=== PATIENT | female | born 1980 | race Caucasian/White ===

== ENCOUNTER → 2019-03-27 | Emergency (ER) | payer OTHER ==
[~2019-03-27] VITALS: Ht 157.5 cm; Wt 65.8 kg
== END | disposition left against medical advice (07) ==
LOC: ER 16:51 → EDBD 17:30
DX: Z53.20 Procedure and treatment not carried out because of patient's decision for unspecified reasons (principal)

== ENCOUNTER 2019-05-10 15:44 | Emergency (ER) | payer OTHER ==
[~2019-05-10] VITALS: Ht 157.5 cm; Wt 64.4 kg
[2019-05-10] MEDS ORDERED: NORVASC10 MG PO (16:00)
[2019-05-10] MEDS ORDERED: ALTACE10 MG PO (16:00)
[2019-05-10] MEDS ORDERED: CRYSELLE-28 TA1 EACH PO (16:11)
== END 2019-05-10 18:25 | disposition home or self-care (01) ==
LOC: ER 15:44
DX: S13.4XXA Sprain of ligaments of cervical spine, initial encounter (principal); M54.2 Cervicalgia; R07.89 Other chest pain; M62.838 Other muscle spasm; V49.88XA Car occupant (driver) (passenger) injured in other specified transport accidents, initial encounter; Y93.89 Activity, other specified; Y92.488 Other paved roadways as the place of occurrence of the external cause; Y99.8 Other external cause status

== ENCOUNTER 2019-05-31 20:49 | Emergency (ER) | payer OTHER ==
[~2019-05-31] VITALS: Ht 157.5 cm; Wt 68.0 kg
[~2019-05-31 20:49] MED LIST: ALTACE10 MG PO; CRYSELLE-28 TA1 EACH PO; NORVASC10 MG PO
== END 2019-05-31 22:23 | disposition home or self-care (01) ==
LOC: ER 20:49
DX: S80.02XA Contusion of left knee, initial encounter (principal); S80.01XA Contusion of right knee, initial encounter; M12.562 Traumatic arthropathy, left knee; M12.561 Traumatic arthropathy, right knee; W18.09XA Striking against other object with subsequent fall, initial encounter; Y93.89 Activity, other specified; Y92.89 Other specified places as the place of occurrence of the external cause; Y99.8 Other external cause status

== ENCOUNTER 2021-02-18 09:40 | Emergency (ER) | payer OTHER ==
[~2021-02-18] VITALS: Ht 157.5 cm; Wt 81.6 kg
[2021-02-18] MEDS ORDERED: PEPCID20 MG PO (15:24)
[2021-02-18] MEDS ORDERED: LEVSIN/SL0.125 MG SL (15:24)
== END 2021-02-18 15:40 | disposition home or self-care (01) ==
LOC: ER 09:40
DX: R10.84 Generalized abdominal pain (principal); R11.10 Vomiting, unspecified; I10 Essential (primary) hypertension